=== PATIENT | male | born 1950 | race Hispanic/Latino ===

== ENCOUNTER 2022-01-16 10:43 | Inpatient (IN) | payer OTHER, MEDICARE ==
[~2022-01-16] VITALS: Ht 165.1 cm; Wt 72.8 kg
[2022-01-16] MEDS ORDERED: 0.9%NACL 1000ML 1,000 ML IV SCH ×2 (11:30→12:00)
[2022-01-16] MEDS ORDERED: ONDANSETRON 4MG INJ IVP SCH (11:30)
[2022-01-16 11:40] LABS: APPEARANCE,URINE Cloudy (CLEAR); BILIRUBIN,URINE Negative (NEGATIVE); COLOR,URINE Dark Yellow (YELLOW); GLUCOSE, URINE (UA) >=1000 mg/dL (NEGATIVE); KETONES,URINE Trace mg/dL (NEGATIVE); LEUKOCYTE ESTERASE ,URINE Trace (NEGATIVE); NITRATE,URINE Negative (NEGATIVE); OCCULT BLOOD,URINE Trace (NEGATIVE); PROTEIN,URINE POS 2+ mg/dL (NEGATIVE)
[2022-01-16 11:43] LABS: BASOPHILS % (AUTO) 0.2 % (0.0-5.0); EOSINOPHILS % (AUTO) 1.4 % (0.0-8.0); HEMATOCRIT 36.9 % (42-54); LYMPHOCYTES % (AUTO) 2.4 % (21.0-51.0); MEAN CORPUSCULAR HEMOGLOBIN 26.9 pg (27.0-33.0); MEAN CORPUSCULAR HGB CONC 33.6 g/dL (32.0-36.0); MONOCYTES % (AUTO) 4.5 % (3.0-13.0); NEUTROPHILS % (AUTO) 90.2 % (40.0-77.0); PLATELET COUNT (AUTO) 208 K/uL (130-400); RED BLOOD CELL COUNT(AUTO) 4.61 MIL/uL (4.50-6.20); RED CELL DISTRIBUTION WIDTH 12.1 % (11.0-15.5); WHITE BLOOD COUNT (AUTO) 22.3 K/uL (4.8-10.8)
[2022-01-16 12:14] LABS: CREATININE 1.4 mg/dL (0.5-1.5)
[2022-01-16 12:19] LABS: ALBUMIN 2.8 g/dL (3.5-5.0); BILIRUBIN,TOTAL 1.6 mg/dL (0.2-1.0); TOTAL PROTEIN, SERUM 7.5 g/dL (6.0-8.3)
[2022-01-16 12:25] LABS: BACTERIA,URINE Few /HPF (None Seen); SQUAMOUS EPITHELIAL CELL,UR 0-2 /HPF (0-2); WBC,URINE 0-1 /HPF (0-1)
[2022-01-16 12:29] LABS: RBC,URINE 0-1 /HPF (0-1)
[2022-01-16] MEDS ORDERED: ZOSYN 3.375GM +NS 50ML IV SCH (12:35)
[2022-01-16] MEDS ORDERED: ZOSYN 3.375GM+NS 50ML 50 ML ONE (13:04)
[2022-01-16] MEDS ORDERED: PANTOPRAZOLE 40 MG/VIAL IVP ONE (13:30)
[2022-01-16] MEDS ORDERED: THIAMINE HCL 100 MG/ML 2ML VIAL IVP SCH (13:30)
[2022-01-16] MEDS: 0.9%NACL 1000ML 1,000 ML IV SCH (13:47)
[2022-01-16] MEDS: METRONIDAZOLE 500 MG TABLET PO SCH ×2 (14:09→20:22)
[2022-01-16 14:18] LABS: INR 0.99 (0.85-1.15); PROTHROMBIN TIME 10.8 SEC (9.6-11.6)
[2022-01-16] MEDS ORDERED: ASPIRIN 81 MG EC TAB PO ONE (14:30)
[2022-01-16] MEDS ORDERED: TICAGRELOR 90 MG TABLET PO SCH (14:30)
[2022-01-16 14:40] LABS: HEMOGLOBIN A1C 8.4 % (4.0-6.0)
[2022-01-16 14:50] LABS: THYROID STIMULATING HORMONE 0.38 uIU/mL (0.36-3.74)
[2022-01-16] MEDS ORDERED: INSULIN GLARGINE 100 UNITS/ML 10 ML VIAL SQ ONE (15:00)
[2022-01-16 16:00] VITALS: BP 119/62
[2022-01-16] MEDS ORDERED: CEFTRIAXONE 1G VIAL IVP ONE (16:00)
[2022-01-16] MEDS: INSULIN HUMULIN R 100 UNIT/ML 3ML SQ SCH ×2 (16:03→21:55)
[2022-01-16 17:19] LABS: CREATININE 1.1 mg/dL (0.5-1.5); POTASSIUM 4.2 mmol/L (3.5-5.1)
[2022-01-16 19:15] VITALS: BP 104/67
[2022-01-16] MEDS: TICAGRELOR 90 MG TABLET PO SCH (20:22)
[2022-01-16] MEDS: METOPROLOL TARTRATE 25 MG TAB PO SCH (20:47)
[2022-01-16] MEDS ORDERED: LINAGLIPTIN 5 MG TABLET PO SCH (21:00)
[2022-01-16 23:26] VITALS: BP 122/64
[2022-01-17] MEDS: 0.9%NACL 1000ML 1,000 ML IV SCH ×2 (03:12→18:06)
[2022-01-17 03:44] VITALS: BP 121/82
[2022-01-17] MEDS: METRONIDAZOLE 500 MG TABLET PO SCH (05:28)
[2022-01-17] MEDS: INSULIN HUMULIN R 100 UNIT/ML 3ML SQ SCH ×4 (05:28→20:27)
[2022-01-17 07:50] LABS: BASOPHILS % (AUTO) 0.2 % (0.0-5.0); EOSINOPHILS % (AUTO) 2.5 % (0.0-8.0); HEMATOCRIT 31.1 % (42-54); MEAN CORPUSCULAR HEMOGLOBIN 26.4 pg (27.0-33.0); MEAN CORPUSCULAR HGB CONC 32.8 g/dL (32.0-36.0); MEAN CORPUSCULAR VOLUME 80.6 fL (79-99); MONOCYTES % (AUTO) 5.7 % (3.0-13.0); NEUTROPHILS % (AUTO) 86.3 % (40.0-77.0); PLATELET COUNT (AUTO) 159 K/uL (130-400); RED BLOOD CELL COUNT(AUTO) 3.86 MIL/uL (4.50-6.20); RED CELL DISTRIBUTION WIDTH 11.9 % (11.0-15.5)
[2022-01-17 08:00] VITALS: BP 109/59
[2022-01-17 08:36] LABS: ALBUMIN 2.1 g/dL (3.5-5.0); BILIRUBIN,TOTAL 1.4 mg/dL (0.2-1.0); CREATININE 0.8 mg/dL (0.5-1.5); MAGNESIUM 2.1 mg/dL (1.80-2.40); POTASSIUM 3.7 mmol/L (3.5-5.1); TOTAL PROTEIN, SERUM 6.2 g/dL (6.0-8.3)
[2022-01-17] MEDS: ASPIRIN 81 MG EC TAB PO SCH (08:45)
[2022-01-17] MEDS: FAMOTIDINE 20MG VIAL IV SCH (08:45)
[2022-01-17] MEDS: TICAGRELOR 90 MG TABLET PO SCH ×2 (08:45→20:26)
[2022-01-17] MEDS: METOPROLOL TARTRATE 25 MG TAB PO SCH ×2 (08:46→20:26)
[2022-01-17 11:38] VITALS: BP 117/64
[2022-01-17] MEDS ORDERED: VANCOMYCIN PROTOCOL PER PHARMACY IV SCH (13:00)
[2022-01-17] MEDS ORDERED: VANCOMYCIN 1.5 GM/250 ML BAG 250 ML IV ONE (13:00)
[2022-01-17 16:00] VITALS: BP 139/72
[2022-01-17 18:59] VITALS: BP 114/65
[2022-01-17] MEDS ORDERED: PHARMACY COMMUNICATION MISC SCH (19:00)
[2022-01-17] MEDS ORDERED: COMPOUND PO MISCELLANEOUS 1 EACH MISC MISC PRN (19:00)
[2022-01-17 22:59] VITALS: BP 106/68
[2022-01-18] MEDS ORDERED: VANCOMYCIN 1G/250ML KIT 250 ML IV SCH (01:00)
[2022-01-18 03:43] VITALS: BP 128/72
[2022-01-18 03:53] VITALS: BP 141/68
[2022-01-18] MEDS: INSULIN HUMULIN R 100 UNIT/ML 3ML SQ SCH ×4 (05:16→20:43)
[2022-01-18 06:17] LABS: BASOPHILS % (AUTO) 0.2 % (0.0-5.0); EOSINOPHILS % (AUTO) 4.1 % (0.0-8.0); HEMATOCRIT 26.1 % (42-54); MEAN CORPUSCULAR HEMOGLOBIN 26.9 pg (27.0-33.0); MEAN CORPUSCULAR HGB CONC 33.7 g/dL (32.0-36.0); MEAN CORPUSCULAR VOLUME 79.8 fL (79-99); NEUTROPHILS % (AUTO) 80.7 % (40.0-77.0); PLATELET COUNT (AUTO) 156 K/uL (130-400); RED BLOOD CELL COUNT(AUTO) 3.27 MIL/uL (4.50-6.20); RED CELL DISTRIBUTION WIDTH 12.1 % (11.0-15.5); WHITE BLOOD COUNT (AUTO) 18.3 K/uL (4.8-10.8)
[2022-01-18 06:41] LABS: ALBUMIN 1.7 g/dL (3.5-5.0); BILIRUBIN,TOTAL 1.7 mg/dL (0.2-1.0); CREATININE 0.7 mg/dL (0.5-1.5); POTASSIUM 3.2 mmol/L (3.5-5.1); TOTAL PROTEIN, SERUM 5.4 g/dL (6.0-8.3)
[2022-01-18 07:30] VITALS: BP 141/73
[2022-01-18] MEDS: TICAGRELOR 90 MG TABLET PO SCH ×2 (08:55→20:11)
[2022-01-18] MEDS: FAMOTIDINE 20MG VIAL IV SCH (08:56)
[2022-01-18] MEDS: METOPROLOL TARTRATE 25 MG TAB PO SCH ×2 (08:56→20:10)
[2022-01-18] MEDS: ASPIRIN 81 MG EC TAB PO SCH (08:56)
[2022-01-18] MEDS ORDERED: POTASSIUM CHLORIDE 10% ELIXIR 20 MEQ/15 ML UDCUP PO PRN (09:30)
[2022-01-18] MEDS ORDERED: LIDOCAINE HCL-MPF 1% 2ML VIAL IV PRN (09:30)
[2022-01-18] MEDS ORDERED: POTASSIUM CHLORIDE 20MEQ/100ML 100 ML IV PRN (09:30)
[2022-01-18] MEDS: KCL 20 MEQ ERTAB PO PRN ×3 (10:00→13:11)
[2022-01-18 11:00] VITALS: BP 143/79
[2022-01-18] MEDS: 0.9%NACL 1000ML 1,000 ML IV SCH ×2 (13:13→22:42)
[2022-01-18 15:30] VITALS: BP 121/70
[2022-01-18] MEDS: VANCOMYCIN 250MG/5ML ORAL SOLUTION 40ML PO SCH ×4 (18:25→23:15)
[2022-01-18 19:03] VITALS: BP 129/75
[2022-01-18] MEDS ORDERED: ONDANSETRON 4MG INJ IVP PRN (23:00)
[2022-01-19] VITALS (7 sets, daily range): BP systolic 98–163; BP diastolic 58–74
[2022-01-19] MEDS: 0.9%NACL 1000ML 1,000 ML IV SCH (01:59)
[2022-01-19 04:32] LABS: HEMATOCRIT 24.4 % (42-54); MEAN CORPUSCULAR HEMOGLOBIN 26.2 pg (27.0-33.0); MEAN CORPUSCULAR HGB CONC 32.4 g/dL (32.0-36.0); MEAN CORPUSCULAR VOLUME 80.8 fL (79-99); RED BLOOD CELL COUNT(AUTO) 3.02 MIL/uL (4.50-6.20); RED CELL DISTRIBUTION WIDTH 12.1 % (11.0-15.5); WHITE BLOOD COUNT (AUTO) 17.4 K/uL (4.8-10.8)
[2022-01-19 04:42] LABS: CREATININE 0.7 mg/dL (0.5-1.5); POTASSIUM 3.3 mmol/L (3.5-5.1)
[2022-01-19] MEDS: VANCOMYCIN 250MG/5ML ORAL SOLUTION 40ML PO SCH ×6 (05:24→19:07)
[2022-01-19] MEDS: KCL 20 MEQ ERTAB PO PRN ×3 (05:28→10:14)
[2022-01-19] MEDS: INSULIN HUMULIN R 100 UNIT/ML 3ML SQ SCH ×4 (05:32→21:00)
[2022-01-19] MEDS ORDERED: GADOTERATE MEGLUMINE 10 MMOL/20 ML VIAL IV ONE (08:43)
[2022-01-19] MEDS: METOPROLOL TARTRATE 25 MG TAB PO SCH ×2 (10:12→20:28)
[2022-01-19] MEDS: TICAGRELOR 90 MG TABLET PO SCH ×2 (10:12→20:28)
[2022-01-19] MEDS: FAMOTIDINE 20MG VIAL IV SCH (10:12)
[2022-01-19] MEDS: ASPIRIN 81 MG EC TAB PO SCH (10:12)
[2022-01-19] MEDS ORDERED: ACETAMINOPHEN 325 MG TAB ONE (12:38)
[2022-01-19] MEDS ORDERED: ACETAMINOPHEN 500 MG TABLET PO PRN (13:00)
[2022-01-19] MEDS: ACETAMINOPHEN 325 MG TAB PO PRN ×2 (13:00→14:30)
[2022-01-19] MEDS ORDERED: VANCOMYCIN PROTOCOL PER PHARMACY IV SCH (15:00)
[2022-01-19] MEDS: CEFEPIME HCL 1 GM VIAL IVP SCH ×2 (15:33→22:32)
[2022-01-19] MEDS: VANCOMYCIN 1G/250ML KIT 250 ML IV SCH (20:28)
[2022-01-19] MEDS ORDERED: 0.9%NACL 10ML VIAL ONE (22:19)
[2022-01-20] VITALS (20 sets, daily range): BP systolic 96–144; BP diastolic 50–72
[2022-01-20] MEDS: VANCOMYCIN 250MG/5ML ORAL SOLUTION 40ML PO SCH ×6 (01:02→12:01)
[2022-01-20] MEDS: 0.9%NACL 1000ML 1,000 ML IV SCH ×2 (02:55→17:52)
[2022-01-20] MEDS ORDERED: 0.9%NACL 10ML VIAL ONE (05:31)
[2022-01-20] MEDS: CEFEPIME HCL 1 GM VIAL IVP SCH ×3 (06:03→23:26)
[2022-01-20] MEDS: INSULIN HUMULIN R 100 UNIT/ML 3ML SQ SCH ×4 (06:51→21:00)
[2022-01-20 07:20] LABS: HEMATOCRIT 24.1 % (42-54); MEAN CORPUSCULAR HEMOGLOBIN 26.8 pg (27.0-33.0); MEAN CORPUSCULAR HGB CONC 33.2 g/dL (32.0-36.0); MEAN CORPUSCULAR VOLUME 80.6 fL (79-99); RED BLOOD CELL COUNT(AUTO) 2.99 MIL/uL (4.50-6.20); RED CELL DISTRIBUTION WIDTH 12.8 % (11.0-15.5); WHITE BLOOD COUNT (AUTO) 16.8 K/uL (4.8-10.8)
[2022-01-20 07:36] LABS: CREATININE 0.8 mg/dL (0.5-1.5)
[2022-01-20] MEDS: VANCOMYCIN 1G/250ML KIT 250 ML IV SCH ×2 (08:42→20:00)
[2022-01-20] MEDS: METOPROLOL TARTRATE 25 MG TAB PO SCH ×2 (08:42→23:27)
[2022-01-20] MEDS: FAMOTIDINE 20MG VIAL IV SCH (08:42)
[2022-01-20] MEDS: ASPIRIN 81 MG EC TAB PO SCH (08:43)
[2022-01-20] MEDS: TICAGRELOR 90 MG TABLET PO SCH ×2 (08:43→23:27)
[2022-01-20] MEDS ORDERED: ASPI-1005 PO (09:44)
[2022-01-20] MEDS ORDERED: ALOG25TA2 PO (09:44)
[2022-01-20] MEDS ORDERED: ATOR40TA71 PO (09:44)
[2022-01-20] MEDS ORDERED: GLIP10TA9 PO (09:44)
[2022-01-20] MEDS ORDERED: LISI10TA24 PO (09:44)
[2022-01-20] MEDS ORDERED: OMEP20TA20 PO (09:44)
[2022-01-20] MEDS ORDERED: TICA90TA PO (09:44)
[2022-01-20] MEDS ORDERED: LIDOCAINE HCL 1% 20 ML VIAL ONE (19:00)
[2022-01-20] MEDS ORDERED: BUPIVACAINE/PF 0.5% 30ML VIAL ONE (19:00)
[2022-01-20] MEDS ORDERED: KETAMINE 50MG/ML SYRINGE 50 MG/ML DISP.SYRIN IV ONE (20:31)
[2022-01-20] MEDS ORDERED: PROPOFOL 10 MG/ML 20ML VIAL IV ONE (20:35)
[2022-01-20] MEDS ORDERED: MIDAZOLAM HCL 1 MG/ML 2ML VIAL ONE (20:46)
[2022-01-21] VITALS (10 sets, daily range): BP systolic 84–137; BP diastolic 51–73
[2022-01-21] MEDS ORDERED: MORPHINE 2 MG SYG IVP PRN
[2022-01-21 05:01] LABS: MEAN CORPUSCULAR HEMOGLOBIN 26.9 pg (27.0-33.0); MEAN CORPUSCULAR HGB CONC 32.8 g/dL (32.0-36.0); MEAN CORPUSCULAR VOLUME 81.8 fL (79-99); RED BLOOD CELL COUNT(AUTO) 2.42 MIL/uL (4.50-6.20); RED CELL DISTRIBUTION WIDTH 13.1 % (11.0-15.5); WHITE BLOOD COUNT (AUTO) 10.9 K/uL (4.8-10.8)
[2022-01-21 05:06] LABS: CREATININE 0.7 mg/dL (0.5-1.5)
[2022-01-21 05:14] LABS: HEMATOCRIT 19.8 % (42-54)
[2022-01-21] MEDS: CEFEPIME HCL 1 GM VIAL IVP SCH ×3 (06:25→23:08)
[2022-01-21] MEDS: INSULIN HUMULIN R 100 UNIT/ML 3ML SQ SCH ×4 (07:30→21:06)
[2022-01-21] MEDS ORDERED: COMPOUND IV REFRIGERATED 1 EACH IVSOLN MISC PRN (08:30)
[2022-01-21] MEDS: TICAGRELOR 90 MG TABLET PO SCH ×2 (10:02→20:53)
[2022-01-21] MEDS: ASPIRIN 81 MG EC TAB PO SCH (10:02)
[2022-01-21] MEDS: METOPROLOL TARTRATE 25 MG TAB PO SCH ×2 (10:02→20:53)
[2022-01-21] MEDS: VANCOMYCIN 1.25 GM/250 ML BAG 250 ML IV SCH ×2 (10:33→21:02)
[2022-01-21] MEDS: 0.9%NACL 1000ML 1,000 ML IV SCH ×2 (10:34→23:09)
[2022-01-21] MEDS: FAMOTIDINE 20MG VIAL IV SCH (10:34)
[2022-01-21 15:35] LABS: HEMATOCRIT 25.1 % (42-54); MEAN CORPUSCULAR HEMOGLOBIN 27.2 pg (27.0-33.0); MEAN CORPUSCULAR HGB CONC 33.1 g/dL (32.0-36.0); MEAN CORPUSCULAR VOLUME 82.3 fL (79-99); RED BLOOD CELL COUNT(AUTO) 3.05 MIL/uL (4.50-6.20); WHITE BLOOD COUNT (AUTO) 12.1 K/uL (4.8-10.8)
[2022-01-22 03:20] VITALS: BP 115/56
[2022-01-22 04:13] LABS: HEMATOCRIT 23.6 % (42-54); MEAN CORPUSCULAR HGB CONC 34.3 g/dL (32.0-36.0); MEAN CORPUSCULAR VOLUME 81.7 fL (79-99); RED BLOOD CELL COUNT(AUTO) 2.89 MIL/uL (4.50-6.20); RED CELL DISTRIBUTION WIDTH 13.2 % (11.0-15.5); WHITE BLOOD COUNT (AUTO) 12.7 K/uL (4.8-10.8)
[2022-01-22 04:20] LABS: CREATININE 0.8 mg/dL (0.5-1.5); POTASSIUM 3.6 mmol/L (3.5-5.1)
[2022-01-22] MEDS: KCL 20 MEQ ERTAB PO PRN (05:11)
[2022-01-22] MEDS: CEFEPIME HCL 1 GM VIAL IVP SCH ×3 (06:52→22:22)
[2022-01-22 07:00] VITALS: BP 135/65
[2022-01-22] MEDS: INSULIN HUMULIN R 100 UNIT/ML 3ML SQ SCH ×4 (07:05→20:58)
[2022-01-22] MEDS: FAMOTIDINE 20MG VIAL IV SCH (09:36)
[2022-01-22] MEDS: TICAGRELOR 90 MG TABLET PO SCH ×2 (09:36→20:54)
[2022-01-22] MEDS: ASPIRIN 81 MG EC TAB PO SCH (09:37)
[2022-01-22] MEDS: METOPROLOL TARTRATE 25 MG TAB PO SCH ×2 (09:37→20:55)
[2022-01-22] MEDS: VANCOMYCIN 1.25 GM/250 ML BAG 250 ML IV SCH ×2 (09:41→20:54)
[2022-01-22 11:00] VITALS: BP 127/65
[2022-01-22] MEDS: 0.9%NACL 1000ML 1,000 ML IV SCH (12:30)
[2022-01-22 16:00] VITALS: BP 120/63
[2022-01-22 19:01] VITALS: BP 107/70
[2022-01-22] MEDS ORDERED: 0.9%NACL 10ML VIAL ONE (22:20)
[2022-01-22 23:30] VITALS: BP 104/58
[2022-01-23] MEDS: 0.9%NACL 1000ML 1,000 ML IV SCH (01:49)
[2022-01-23 03:17] VITALS: BP 124/65
[2022-01-23 04:23] LABS: HEMATOCRIT 22.2 % (42-54); MEAN CORPUSCULAR HEMOGLOBIN 27.5 pg (27.0-33.0); MEAN CORPUSCULAR HGB CONC 32.9 g/dL (32.0-36.0); MEAN CORPUSCULAR VOLUME 83.8 fL (79-99); RED BLOOD CELL COUNT(AUTO) 2.65 MIL/uL (4.50-6.20); RED CELL DISTRIBUTION WIDTH 13.4 % (11.0-15.5); WHITE BLOOD COUNT (AUTO) 9.9 K/uL (4.8-10.8)
[2022-01-23 05:52] LABS: CREATININE 0.7 mg/dL (0.5-1.5); POTASSIUM 3.5 mmol/L (3.5-5.1)
[2022-01-23] MEDS: INSULIN HUMULIN R 100 UNIT/ML 3ML SQ SCH ×3 (06:05→16:42)
[2022-01-23] MEDS: CEFEPIME HCL 1 GM VIAL IVP SCH ×2 (06:15→14:07)
[2022-01-23 08:16] LABS: HEMATOCRIT 22.5 % (42-54)
[2022-01-23 08:27] VITALS: BP 151/69
[2022-01-23] MEDS: ASPIRIN 81 MG EC TAB PO SCH (09:01)
[2022-01-23] MEDS: METOPROLOL TARTRATE 25 MG TAB PO SCH (09:01)
[2022-01-23] MEDS: FAMOTIDINE 20MG VIAL IV SCH (09:02)
[2022-01-23] MEDS: TICAGRELOR 90 MG TABLET PO SCH (09:02)
[2022-01-23] MEDS: VANCOMYCIN 1.25 GM/250 ML BAG 250 ML IV SCH (09:02)
[2022-01-23 12:00] VITALS: BP 136/77
[2022-01-23 16:10] VITALS: BP 139/79
[2022-01-23] MEDS ORDERED: TRAM50TA4 PO (17:50)
== END 2022-01-23 18:35 | disposition home or self-care (01) | DRG 853 ==
LOC: EDH 10:43 → EDHIP 13:16 → 2DH 14:44
PROVIDERS: ADMIT Hospitalist; ATTEND Hospitalist
PROC: 0Y6M0ZF Detachment at Right Foot, Partial 5th Ray, Open Approach (ICD-10-PCS; 2022-01-20)
PROC: 0JBQ0ZZ Excision of Right Foot Subcutaneous Tissue and Fascia, Open Approach (ICD-10-PCS; principal; 2022-01-21)
PROC: 30233N1 Transfusion of Nonautologous Red Blood Cells into Peripheral Vein, Percutaneous Approach (ICD-10-PCS; 2022-01-21)
DX: A41.9 Sepsis, unspecified organism (principal); M72.6 Necrotizing fasciitis; M86.171 Other acute osteomyelitis, right ankle and foot; A09 Infectious gastroenteritis and colitis, unspecified; E87.1 Hypo-osmolality and hyponatremia; N17.9 Acute kidney failure, unspecified; D62 Acute posthemorrhagic anemia; L02.611 Cutaneous abscess of right foot; L03.115 Cellulitis of right lower limb; Z20.822 Contact with and (suspected) exposure to COVID-19; I25.2 Old myocardial infarction; Z95.5 Presence of coronary angioplasty implant and graft; I10 Essential (primary) hypertension; E78.5 Hyperlipidemia, unspecified; I25.10 Atherosclerotic heart disease of native coronary artery without angina pectoris; E11.65 Type 2 diabetes mellitus with hyperglycemia; E86.0 Dehydration; R54 Age-related physical debility; Z83.3 Family history of diabetes mellitus; E66.9 Obesity, unspecified; E87.6 Hypokalemia; E11.69 Type 2 diabetes mellitus with other specified complication; E11.621 Type 2 diabetes mellitus with foot ulcer; L97.519 Non-pressure chronic ulcer of other part of right foot with unspecified severity; E11.51 Type 2 diabetes mellitus with diabetic peripheral angiopathy without gangrene; B95.2 Enterococcus as the cause of diseases classified elsewhere; Z68.26 Body mass index [BMI] 26.0-26.9, adult
CPT/HCPCS: 36415; 70450; 71045; 73720; 74176; 80048; 80053; 80202; 81001; 82550; 82948; 83036; 83605; 83735; 84145; 84443; 84484; 84550; 85014; 85018; 85025; 85027; 85610; 85651; 85730; 86850; 86900; 86901; 86923; 87040; 87070; 87076; 87077; 87186; 87205; 87635; 87804; 93005; 93925; 93970; 97039; 99291; C9113; C9803; G0378; J0692; J0696; J1815; J2250; J2405; J2543; J2704; J3370; J3411; J3490; J7030; P9016; Q0161